=== PATIENT | male | born 1975 | race African-American/Black ===

== ENCOUNTER 2017-06-19 13:00 | Outpatient (RCR) | payer OTHER ==
[~2017-06-19 13:00] MED LIST: AMLODIPINE BESY10 MG PO; BYSTOLIC10 MG PO; CLINDAMYCIN HC150 MG PO; CRESTOR10 MG PO; DUEXIS 800-26.1 EACH PO; LEVAQUIN250 MG PO; PREDNISONE20 MG PO; TYLENOL WITH C1 EACH PO
== END 2017-07-09 ==
LOC: PT 13:00
PROVIDERS: ATTEND Family Medicine
DX: M79.602 Pain in left arm (principal); M79.601 Pain in right arm; V89.2XXA Person injured in unspecified motor-vehicle accident, traffic, initial encounter